=== PATIENT | female | born 1975 | race Caucasian/White ===

== ENCOUNTER 2022-09-30 11:04 | Oncology outpatient (recurring) (ONCR) | payer BC, SELFPAY ==
[2022-09-30 12:05] LABS: Basophils # 0.1 10^3/uL (0.0-0.1); Basophils % 0.7 %; Eosinophils # 0.3 10^3/uL (0.0-0.8); Eosinophils % 3.4 %; Hematocrit 32.5 % (37.0-47.0); Lymphocytes # 1.7 10^3/uL (0.8-4.8); Lymphocytes % 19.6 %; Mean Corpuscular HGB Conc 30.8 g/dL (30.0-36.0); Mean Corpuscular Hemoglobin 25.8 pg (28.0-34.0); Mean Corpuscular Volume 83.8 fl (81-99); Mean Platelet Volume 10.2 fL (7.4-10.4); Monocytes # 0.5 10^3/uL (0.2-0.9); Monocytes % 6.1 %; Neutrophils # 5.96 10^3/uL (1.8-7.7); Nucleated Red Blood Cells % 0 %; Platelet Count 332 10^3/cmm (130-400); Red Blood Count 3.88 10^6/uL (4.1-5.3); Red Cell Distribution Width 15.2 % (12.1-15.1); White Blood Count 8.5 10^3/uL (4.0-10.0)
== END 2022-10-25 23:59 | disposition home or self-care (01) ==
PROVIDERS: Internal Medicine Hematology & Oncology; PCP Nurse Practitioner Family; Visit Provider Internal Medicine Medical Oncology
DX: D64.9 Anemia, unspecified (principal)
CPT/HCPCS: 36415; 85025

== ENCOUNTER 2022-11-04 08:00 | Oncology outpatient (recurring) (ONCR) | payer BC, SELFPAY ==
[2022-10-26 08:35] VITALS: BP 120/69; PULSE 80; RESP 18; TEMP 36.2; O2SAT 98
[2022-10-26] MEDS: sodium chloride 0.9% 250 ML 75 ML IV (08:47)
[2022-10-26] MEDS: acetaminophen 325 mg Tablet 650 MG PO (08:48)
[2022-10-26] MEDS: diphenhydrAMINE 50 mg/mL SDV 1mL 25 MG IVP (08:48)
[2022-10-26] MEDS: iron sucrose 200 MG in sodium chloride 0.9% (100 ml) 100 ML 220 MG IV (09:03)
[2022-10-26 09:48] VITALS: BP 110/76; PULSE 81; RESP 18; TEMP 36.3; O2SAT 97
[2022-10-28 08:10] VITALS: BP 113/71; PULSE 90; RESP 18; TEMP 36.5; O2SAT 99
[2022-10-28] MEDS: sodium chloride 0.9% 250 ML 75 ML IV (08:16)
[2022-10-28] MEDS: acetaminophen 325 mg Tablet 650 MG PO (08:17)
[2022-10-28] MEDS: iron sucrose 200 MG in sodium chloride 0.9% (100 ml) 100 ML 220 MG IV (08:32)
[2022-10-28 08:45] VITALS: BP 113/71; PULSE 90; RESP 16; TEMP 36.5; O2SAT 99
[2022-10-28 09:20] VITALS: BP 103/75; PULSE 82; RESP 18; TEMP 36.6; O2SAT 97
[2022-10-30] MEDS: acetaminophen 325 mg Tablet 650 MG PO (08:16)
[2022-10-30] MEDS: sodium chloride 0.9% 250 ML 75 ML IV (08:18)
[2022-10-30 08:20] VITALS: BP 112/71; PULSE 80; RESP 16; TEMP 36.3; O2SAT 96
[2022-10-30] MEDS: iron sucrose 200 MG in sodium chloride 0.9% (100 ml) 100 ML 220 MG IV (08:43)
[2022-10-30 09:35] VITALS: BP 111/74; PULSE 76; RESP 16; TEMP 37; O2SAT 99
[2022-11-02 08:05] VITALS: BP 126/86; PULSE 85; RESP 18; TEMP 36.5; O2SAT 98
[2022-11-02] MEDS: acetaminophen 325 mg Tablet 650 MG PO (08:13)
[2022-11-02] MEDS: sodium chloride 0.9% 250 ML 75 ML IV (08:13)
[2022-11-02] MEDS: iron sucrose 200 MG in sodium chloride 0.9% (100 ml) 100 ML 220 MG IV (08:13)
[2022-11-02 08:55] VITALS: BP 120/76; PULSE 69; RESP 18; TEMP 36.8; O2SAT 98
[2022-11-04] MEDS: iron sucrose 200 MG in sodium chloride 0.9% (100 ml) 100 ML 220 MG IV (08:46)
[2022-11-04 08:52] VITALS: BP 124/76; PULSE 83; RESP 18; TEMP 37.1; O2SAT 99
== END 2022-11-25 23:59 | disposition home or self-care (01) ==
PROVIDERS: PCP Nurse Practitioner Family; Visit Provider Internal Medicine Medical Oncology
DX: D50.9 Iron deficiency anemia, unspecified (principal)
CPT/HCPCS: 96365; 96374; 96375; J1200; J1756; J7050

== ENCOUNTER → 2022-12-23 12:12 | Outpatient (BNVA) | payer BC, SELFPAY | PROVIDERS: PCP Nurse Practitioner Family; Visit Provider Internal Medicine Rheumatology | DX: M19.90 Unspecified osteoarthritis, unspecified site (principal); Z11.59 Encounter for screening for other viral diseases; M45.6 Ankylosing spondylitis lumbar region; Z79.899 Other long term (current) drug therapy; M47.898 Other spondylosis, sacral and sacrococcygeal region; M18.11 Unilateral primary osteoarthritis of first carpometacarpal joint, right hand | CPT/HCPCS: 36415; 72100; 72202; 73130; 73630; 85651; 86140; 86480; 86704; 86803; 86812; 87340 ==

== ENCOUNTER → 2022-12-31 11:08 | Outpatient (BNVA) | payer BC, SELFPAY | PROVIDERS: PCP Nurse Practitioner Family; Visit Provider Obstetrics & Gynecology | DX: N93.9 Abnormal uterine and vaginal bleeding, unspecified (principal); N85.2 Hypertrophy of uterus | CPT/HCPCS: 76830 ==

== ENCOUNTER 2023-01-04 11:01 | Oncology outpatient (recurring) (ONCR) | payer BC, SELFPAY ==
[2023-01-04 11:22] VITALS: BP 116/71; PULSE 87; RESP 18; TEMP 36.9; O2SAT 96
[2023-01-04 11:31] LABS: Basophils # 0.1 10^3/uL (0.0-0.1); Basophils % 0.6 %; Eosinophils # 0.3 10^3/uL (0.0-0.8); Eosinophils % 3.2 %; Hematocrit 36.7 % (37.0-47.0); Hemoglobin 11.6 g/dL (11.5-15.3); Lymphocytes # 1.6 10^3/uL (0.8-4.8); Lymphocytes % 17.7 %; Mean Corpuscular HGB Conc 31.6 g/dL (30.0-36.0); Mean Corpuscular Hemoglobin 28.6 pg (28.0-34.0); Mean Corpuscular Volume 90.4 fl (81-99); Monocytes # 0.6 10^3/uL (0.2-0.9); Monocytes % 6.3 %; Neutrophils # 6.65 10^3/uL (1.8-7.7); Nucleated Red Blood Cells % 0 %; Platelet Count 284 10^3/cmm (130-400); Red Blood Count 4.06 10^6/uL (4.1-5.3); Red Cell Distribution Width 18.6 % (12.1-15.1); White Blood Count 9.3 10^3/uL (4.0-10.0)
[2023-01-04 12:08] LABS: Ferritin 74 ng/mL (15-150); Iron 51 ug/dL (37-145); Percent Saturation 21.2 % (20-50); Total Iron Binding Capacity 240 mcg/dl; Unsaturated Iron Binding 189 ug/dL (112-347); Vitamin B12 391 pg/mL (232-1245)
== END 2023-01-25 23:59 | disposition home or self-care (01) ==
PROVIDERS: Internal Medicine Hematology & Oncology; PCP Nurse Practitioner Family; Visit Provider Internal Medicine Medical Oncology
DX: D64.9 Anemia, unspecified (principal)
CPT/HCPCS: 36415; 82607; 82728; 83540; 83550; 85025

== ENCOUNTER 2023-01-14 10:17 | Day surgery (SDC) | payer BC, SELFPAY ==
--- NOTE | 2023-01-12 21:24 | W.PM.OPSFHP ---
Same Day Surgery H&P Indication for Procedure/HPI DATE OF PROCEDURE: January 12, 2023 CHIEF COMPLAINT/INDICATIONFOR SURGICAL PROCEDURE: abnormal uterine bleeding, long history of menorrhagia and iron-deficiency anemia PREOP DIAGNOSIS: abnormal uterine bleeding PLANNED PROCEDURE: Operation Date: 01/14/23 12:00 Proposed Procedures p Hysteroscopy, endometrial sampling 68925, Possible endometrial polypectomy with Myosure 71972, endometrial ablation 03833,N93.9(Not Applicable) - Kenton Forman MD s Poylpectomy(Not Applicable) - Kenton Forman MD s Endometrial ablation(Not Applicable) - Kenton Forman MD 46 y.o. A1 h/o BTL 2001 h/o x four periods every three weeks, heavy, lasting 6-8 days x 20 years very heavy with clots no pain / cramps has chronic iron-deficiency anemia referred here by government relations director Saw Dr. Smith, government relations director, for chronic iron-deficiency anemia Referred for evaluation of heavy menstrual bleeding as cause of anemia Receiving IV Venofer Mammogram normal in August 2022 PMHx:? being evaluated for RA PSHx:? carpal tunnel Meds:? levothyroxine 50 mcg daily NKDA Medications/Allergies* NKDA Home Medications Medication Instructions Recorded Confirmed Type levothyroxine 50 mcg capsule 50 mcg PO DAILY 09/30/22 01/04/23 History Allergies/Adverse Reactions Allergy/AdvReac Type Severity Reaction Status Date / Time No Known Allergies Allergy Verified 01/04/23 12:37 Pertinent History/Comorbid Conditions* Medical History (Updated 12/23/22 @ 12:04 by Marvin Hidalgo MD) Achilles tendinitis of both lower extremities Chronic low back pain Cyclic citrullinated peptide (CCP) antibody positive High risk medication use Immunization counseling Iron deficiency anemia Joint pain Seropositive rheumatoid arthritis of multiple sites Surgical History (Updated 12/23/22 @ 12:04 by Marvin Hidalgo MD) History of carpal tunnel release Right wrist History of carpal tunnel surgery Hx of tubal ligation S/P cubital tunnel release Family History (Updated 12/23/22 @ 11:06 by Alana Art, [employer]) Diabetes Father CAD (coronary artery disease) Lung disease Hypertension Stroke Denies family history of Rheumatoid arthritis Colon cancer Ovarian cancer Lupus Clotting disorder Dementia Hyperlipidemia Psychiatric illness Chronic kidney disease (CKD) Breast cancer Suicide Anesthesia complication Bleeding disorder Family history of premature coronary artery disease Cancer Uterine cancer Social History Smoking and tobacco status: current every day smoker cigarettes Packs smoked per day: 0.5 Years cigarettes smoked: 25 Pertinent Exam Findings alert, oriented x 3, clear to auscultation bilaterally and regular rate & rhythm Pertinent Data Pelvic sono? 12-31-22? uterus 11.3 x 7 x 5.1 ?Endometrium ?4 mm ?Normal ovaries Recommendations Surgery/Procedure today Other Plans: Abnormal uterine bleeding Long history of menorrhagia Iron-deficiency anemia Recommend hysteroscopy, endometrial sampling, possible endometrial polypectomy Procedures and risks explained to patient, including risks of infection, bleeding, injury to internal organs, anesthesia, blood transfusions Patient understands and wants to proceed Plan schedule hysteroscopy, endometrial sampling, possible endometrial polypectomy Also discussed options of treatment, including OCs, DMPA, nuvaring, nexplanon, mirena IUD, endometrial ablation, hysterectomy Along with risks / side effects / benefits of each option Patient wants endometrial ablation Does not want OCs, DMPA, mirena IUD procedures of hysteroscopy, endometrial sampling, endometrial polypectomy, endometrial ablation discussed, along with risks of infection; bleeding; injury to internal organs, such as uterine perforation, bowel injury; anesthesia; blood transfusions; continued bleeding or discharge, which may necessitate hysterectomy.? Risk of post-ablation syndrome including pelvic pain also discussed. also explained that, occasionally, endometrial ablation could not be performed due to uterine anatomy or if endometrial hyperplasia or dysplasia is suspected at the time of hysteroscopy patient understands and wants to proceed plan schedule hysteroscopy; endometrial sampling;? possible endometrial polypectomy;? endometrial ablation Coding Level of Care Code Acute Code for Chg Fwd Diagnoses Time Spent (min) 15
[2023-01-13 10:00] VITALS: BMI 26.9
[2023-01-14] VITALS (10 sets, daily range): BP systolic 98–135; BP diastolic 61–83; PULSE 66–82; RESP 14–20; TEMP 36.1–36.7; O2SAT 96–100
[2023-01-14 11:04] LABS: OR HCG Qualitative Urine Negative (Negative)
[2023-01-14] MEDS: scopolamine 1.5 Patch 1 PATCH TRANSDERMA (11:14)
[2023-01-14] MEDS: sodium chloride 0.9% 1,000 ML 30 ML IV (11:14)
--- NOTE | 2023-01-14 12:03 | W.PM.OPSUD ---
Surgery/Procedure H&P Update DATE OF PROCEDURE: January 14, 2023 DATE H&P PERFORMED: 01/14/23 H&P UPDATE INFORMATION: I have reviewed H&P completed within last 30 days, I have examined patient prior to procedure and No changes to prior documentation PREOP DIAGNOSIS: abnormal uterine bleeding PRIMARY INDICATION FOR PROCEDURE: abnormal uterine bleeding PLANNED PROCEDURE: Operation Date: 01/14/23 12:00 Proposed Procedures p Hysteroscopy, endometrial sampling 60021, Possible endometrial polypectomy with Myosure 58082, endometrial ablation 71561,N93.9(Not Applicable) - Kenton Forman MD s Poylpectomy(Not Applicable) - Kenton Forman MD s Endometriosis Cauterization(Not Applicable) - Kenton Forman MD
--- NOTE | 2023-01-14 12:05 | ANES.PREANE2 ---
Pre-Anesthetic Assessment Height/Weight: Height 1.7 m Weight 78.018 kg Temp Pulse Resp BP Pulse Ox O2 Del Method 98.0 F 78 16 123/81 98 Room Air 01/14/23 10:48 01/14/23 10:48 01/14/23 10:48 01/14/23 10:48 01/14/23 10:48 01/14/23 10:51 Preop Diagnosis: abnormal uterine bleeding Operation Date: 01/14/23 12:00 Proposed Procedures p Hysteroscopy, endometrial sampling 01758, Possible endometrial polypectomy with Myosure 93371, endometrial ablation 53824,N93.9(Not Applicable) - Kenton Forman MD s Poylpectomy(Not Applicable) - Kenton Forman MD s Endometriosis Cauterization(Not Applicable) - Kenton Forman MD Familial anesthetic complications: none Was Beta Wanda taken within 24 hours: N/A Was Clonidine taken within 24 hours: N/A Last intake: Intake Last Liquid Date 01/14/23 Last Liquid Time 05:00 Last Solid Date 01/13/23 Last Solid Time 22:30 Social Tobacco and No alcohol Exam alert, oriented x 3 and regular rate & rhythm Airway Submandibular: within normal limits Cervical ROM: within normal limits Mallampati: Class II Dentition: full Pulmonary Chronic Obstructive Pulmonary Disease CV/HEM Anemia Metabolic Thyroid Disease [facility] Rheumatoid Arthritis Anesthetic Plan ASA status: 2 Anesthesia: General Medications/Allergies Home Medications Medication Instructions Recorded Confirmed Last Taken Type levothyroxine 50 mcg capsule 50 mcg PO DAILY 09/30/22 01/13/23 01/14/23 04:00 History Allergies Allergy/AdvReac Type Severity Reaction Status Date / Time No Known Allergies Allergy Verified 01/04/23 12:37 Current Medications Generic Name Dose Route Start Last Admin Trade Name Freq PRN Reason Stop Dose Admin Sodium Chloride 1,000 mls @ 30 mls/hr 01/14/23 10:30 01/14/23 11:14 Sodium Chloride 0.9% IV 01/15/23 10:29 30 mls/hr .Q24H ANDREW Administration PFSH Anesthesia Medical History Achilles tendinitis of both lower extremities Chronic low back pain Cyclic citrullinated peptide (CCP) antibody positive High risk medication use Immunization counseling Iron deficiency anemia Joint pain Seropositive rheumatoid arthritis of multiple sites Surgical History History of carpal tunnel release Right wrist History of carpal tunnel surgery Hx of tubal ligation S/P cubital tunnel release Family History Father Diabetes Other CAD (coronary artery disease) Hypertension Lung disease Stroke Denies family history of Rheumatoid arthritis Colon cancer Ovarian cancer Lupus Clotting disorder Dementia Hyperlipidemia Psychiatric illness Chronic kidney disease (CKD) Breast cancer Suicide Anesthesia complication Bleeding disorder Family history of premature coronary artery disease Cancer Uterine cancer Social History Smoking and tobacco status: current every day smoker cigarettes Packs smoked per day: 0.5 Years cigarettes smoked: 25 Data Anesthesia Cardiac Studies: No Data to Display
--- NOTE | 2023-01-14 13:30 | P.OP_ITS ---
Operative Report Date of procedure: January 14, 2023 Pre-op diagnosis: Preop Diagnosis abnormal uterine bleeding Post-op diagnosis: same Post-op findings: Uterus sounded to 6 cm Uterine cavity constricted to less than 4 cm in width No polyps or fibroids Unable to perform endometrial ablation due to small size of endometrial cavity relative to the array of the Novasure device Procedure done: hysteroscopy Curettage of uterus Specimens removed/disposition: endometrial curettings Surgeon: Kenton Forman MD Anesthesia: MAC Estimated blood loss (mL): 0 Complications: none Condition: stable Disposition: PACU Brief History: 47 y.o. with abnormal uterine bleeding Procedure: Informed consent signed The patient was taken to the OR and placed supine on the table. Anesthesia was induced. The patient was then placed in dorsolithotomy position. The perineum was prepped and draped in the usual fashion. A speculum was placed in the vagina. The anterior lip of the cervix was grasped with a sharp-toothed tenaculum. The uterus was sounded to 6 cm. The effective uterine cavity measured only 3-4 cm. The cervix was dilated with Hegar dilators. A hysteroscope was placed into the endometrial cavity. The cavity was noted to be constricted to less than 4 cm. No polyps or fibroids were seen. It was deter mined that the cavity was too small to accommodate the Novasure array. A curette was used to obtain endometrial tissue and sent to pathology. All instruments were then removed from the cervix and vagina. No bleeding was seen. The patient was then placed supine and taken to the recovery room. Postoperative condition: stable EBL: none Complications: none Sponge and instruments counts were correct x two
--- NOTE | 2023-01-14 15:33 | ANE.PACU2 ---
Inpatient post-anesthesia follow up: Airway intact: Yes Vital signs: Temperature 97.9 F Pulse Rate 82 Respiratory Rate 16 Blood Pressure 112/82 Pulse Oximetry 100 Oxygen Delivery Me thod Room Air Oxygen Flow Rate 6 Fraction of Inspir ed Oxygen Hydration adequate: Yes Nausea and vomiting: No Pain level: 2 Mental status: Baseline
== END 2023-01-14 14:20 | disposition home or self-care (01) ==
PROVIDERS: Anesthesiology; PCP Nurse Practitioner Family; Visit Provider Obstetrics & Gynecology
PROC: 0UDB8ZZ Extraction of Endometrium, Via Natural or Artificial Opening Endoscopic (ICD-10-PCS; CPT 58558; principal; 2023-01-14 12:00)
DX: N93.9 Abnormal uterine and vaginal bleeding, unspecified (principal); D50.9 Iron deficiency anemia, unspecified; F17.210 Nicotine dependence, cigarettes, uncomplicated; J44.9 Chronic obstructive pulmonary disease, unspecified; E03.9 Hypothyroidism, unspecified
CPT/HCPCS: 58558; 81025; 84703; 88305; J1100; J1885; J2250; J2405; J2704; J3010; J7030

== ENCOUNTER 2023-02-17 11:15 | Oncology outpatient (recurring) (ONCR) | payer BC, SELFPAY ==
--- OUTSIDE RECORDS SUMMARY | 2023-02-17 11:17 | XMS_ITS | Patient Health Record ---
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 Name Role Phone Antoinette Smith Primary Care Provider Noelle Dockery Unavailable [phone] Diane Smith Unavailable Unavailable Rylan hSarma Unavailable [phone] ALLERGIES Allergen (clinical drug ingredient) Drug/Non Drug Allergy documented on EMR Reaction Allergy Type Onset Date Status No Known Drug Allergy Unknown Drug Allergy Active REASON FOR REFERRAL No Information MEDICATIONS Medication SIG (Take, Route, Frequency, Duration) Notes Start Date End Date Status Reglan 10 MG 1 tablet Orally once for 1 days 12/07/2022 Active Levothyroxine Sodium 50 MCG 1 tablet in the morning on an empty stomach Orally Once a day Active SOCIAL HISTORY Tobacco Use: Social History Observation Description Date Details (start date - stop date) Current Smoker NA - NA Sex Assigned At : Social History Observation Description Sex Assigned At Unknown Tobacco Use/Smoking Question Answer Notes Are you a current smoker Alcohol Screen (Audit-C) Question Answer Notes Did you have a drink containing alcohol in the p ast year? No Points 0 Interpretation Negative PROBLEMS Problem Type ICD Code Onset Dates Problem Status W/U Status Risk SNOMED Code Notes Problem Iron deficiency anemia, unspecified iron deficiency anemia type (D50.9) Active confirmed 81375958 VITAL SIGNS Heart Rate 72 /min 12/07/2022 Temperature 97.5 degrees Fahrenheit 12/07/2022 Height-cm 170.18 cm 12/07/2022 Oximetry 99 % 12/07/2022 Blood pressure diastolic 60 mm Hg 12/07/2022 Weight-kg 77.02 kg 12/07/2022 Height 67 in 12/07/2022 Blood pressure systolic 108 mm Hg 12/07/2022 Weight 169.8 lbs 12/07/2022 BMI 26.59 kg/m2 12/07/2022 Encounters Encounter Location Date Provider Diagnosis [facility] [address] [place] [address] 12/07/2022 Rylan Sharma [facility] [address] [place] [address] 02/09/2023 Rylan Sharma [facility] [address] [place] [address] 12/07/2022 Noelle Herson Iron deficiency anemia, unspecified iron deficiency anemia type D50.9 ASSESSMENTS Encounter Date Diagnosis Assessment Notes Treatment Notes Treatment Clinical Notes 12/07/2022 Iron deficiency anemia, unspecified iron deficiency anemia type (ICD-10 - D50.9) The patient has a prerequisite risk factors for development of colon/esophageal cancer. I have discussed the options of diagnostic testing with their advantages and disadvantages. I have recommended colonoscopy/EGD with possible biopsy and polypectomy. Risks and Benefits: The benefits, risks, and complications were presented to pt. The patient is aware of the risk of bleeding, perforation, infection, and anesthetic complications related to procedure(s). The patient is aware that although colonoscopy/EGD is an accurate procedure, it does have some limitations. As a result, some lesions, including cancer may be missed. Ample time was given to answer all questions. Instructions given for the bowel prep. Follow up will be determined after the procedure(s). Refer back to PCP. 12/07/2022 Other Colonoscopy: Be fore Your Procedure material was printed, Learning About Foods That Are Good Sources of Fiber material was printed, Upper GI Endoscopy: Before Your Procedure material was printed PLAN OF TREATMENT Pending Test Test Name Order Date Diagnostic Colonoscopy-[id number] 12/07/2022 EGD, Upper GI Diagnostic-[id number] 3 Next Appt Details Provider Name:Rylan Eduardo Sharma , 03/29/2023 10:00:00 AM, [address] [place], [address], Insurance Providers Payer Name Payer Address Payer Phone Subscriber Number Group Number Insured Name Patient Relationship to Insured Coverage Start Date Coverage End Date BS [place] [employer] [address] [place] [phone] [id number] Self - patient is the insured MEDICAL (GENERAL) HISTORY Medical History History ICD Code chicken pox anemia bladder infections migraine headache hemorrhoids hives or eczema bronchitis hypothyroidism rashes/skin problems iron deficiency anemia Surgical History Surgery Date(Month/Year) tubal ligation 2001 carpal tunnel and cubital 2020 Hospitalization History Reason Date(Month/Year) see surgery list
[2023-02-17 11:18] VITALS: BP 142/87; PULSE 94; RESP 18; TEMP 36.8; O2SAT 99
[2023-02-17 11:39] LABS: Basophils # 0.1 10^3/uL (0.0-0.1); Basophils % 0.6 %; Eosinophils # 0.3 10^3/uL (0.0-0.8); Eosinophils % 3.3 %; Hematocrit 38.2 % (36-47); Lymphocytes # 1.5 10^3/uL (0.8-4.8); Lymphocytes % 16.4 %; Mean Corpuscular HGB Conc 32.5 g/dL (30-55); Mean Corpuscular Hemoglobin 30.2 pg (27-33); Mean Corpuscular Volume 93.2 fl (85-98); Mean Platelet Volume 10.3 fL (7.4-10.4); Monocytes # 0.6 10^3/uL (0.2-0.9); Monocytes % 7.3 %; Neutrophils # 6.36 10^3/uL (1.8-7.7); Neutrophils % 72.1 %; Nucleated Red Blood Cells % 0 %; Platelet Count 286 10^3/cmm (157-399); Red Cell Distribution Width 14.1 % (12.1-15.1); White Blood Count 8.82 10^3/uL (3.29-11.43)
[2023-02-17 12:03] LABS: Alanine Aminotransferase 14 U/L (0-33); Albumin Level 4.1 g/dL (3.5-5.2); Alkaline Phosphatase 66 U/L (35-105); Anion Gap 11.8 (5-19); Aspartate Amino Transferase 12 U/L (0-32); Blood Urea Nitrogen 14 mg/dL (6-20); Calcium 9.2 mg/dL (8.5-10.5); Carbon Dioxide 27 mmol/L (22-29); Chloride 106 mmol/L (98-107); Ferritin 66 ng/mL (15-150); Globulin 3.1 g/dL (1.3-4.6); Glomerular Filtration Rate 77.2 mL/min (90-130); Glucose 63 mg/dL (65-115); Iron 80 ug/dL (37-145); Osmolality Calculated 291 mOsm/kg (285-295); Percent Saturation 27.2 % (20-50); Potassium 3.8 mmol/L (3.5-5.1); Sodium 141 mmol/L (136-145); Total Bilirubin 0.2 mg/dL (0.15-1.2); Total Iron Binding Capacity 294 mcg/dl; Total Protein 7.2 g/dL (6.6-8.7); Unsaturated Iron Binding 214 ug/dL (112-347)
== END 2023-02-25 23:59 | disposition home or self-care (01) ==
PROVIDERS: Nurse Practitioner Family; PCP Nurse Practitioner Family; Visit Provider Internal Medicine Medical Oncology
DX: D50.9 Iron deficiency anemia, unspecified (principal)
CPT/HCPCS: 36415; 80053; 82728; 83540; 83550; 85025

== ENCOUNTER 2023-02-26 08:38 | Oncology outpatient (recurring) (ONCR) | payer BC, SELFPAY | END 2023-03-27 23:59 | disposition home or self-care (01) | PROVIDERS: PCP Nurse Practitioner Family; Visit Provider Internal Medicine Medical Oncology | DX: Z53.9 Procedure and treatment not carried out, unspecified reason (principal) ==